=== PATIENT | male | born 1995 | race Caucasian/White ===

== ENCOUNTER 2021-03-21 04:30 | Inpatient (IN) ==
[2021-03-21] MEDS ORDERED: LACTATED RINGERS 1,000 ML IV STA (04:53)
[2021-03-21] MEDS ORDERED: DIPHTHERIA/TETANUS ADULT VACCINE 0.5 ML SYRINGE IM ONE (04:53)
[2021-03-21 05:12] LABS: Basophils # 0.1 10*3/uL (0.0-0.2); Basophils % 0.3 % (0.0-0.8); Hematocrit 43.5 VOL% (42.0-52.0); Hemoglobin 14.5 GM/DL (14.0-18.0); Immature Granulocytes % 0.6 %; Immature Granulocytes Absolute 0.13 #; Lymphocytes # 1.7 10*3/uL (1.4-4.0); Lymphocytes % 7.7 % (21.2-54.2); Mean Corpuscular HGB Conc 33.3 GM/DL (32-36); Monocytes % 5.6 % (1.7-12.7); Neutrophils % 85.8 % (38.7-73.9); Platelet Count 224 T/CUMM (130-400); Red Blood Count 4.89 MC/CUMM (3.8-5.5); Red Cell Distribution Width 12.6 % (9.3-17.3); White Blood Count 21.4 T/CUMM (4-12)
[2021-03-21 05:17] LABS: INR 1.6; PT Patient Result 17.7 SECS (10.5-12.0)
[2021-03-21 05:31] LABS: Alanine Aminotransferase 24 U/L (16-61); Albumin 4.2 G/DL (3.4-5.0); Alkaline Phosphatase 54 U/L (45-117); Amylase 60 U/L (25-115); Aspartate Amino Transferase 23 U/L (0-37); Blood Urea Nitrogen 12 MG/DL (7-18); Calcium 9.3 MG/DL (8.5-10.1); Carbon Dioxide 25 MMOL/L (21-32); Estimated Glom Filtration Rate 113 ML/MIN; Glucose 119 MG/DL (74-106); Osmolality,Calculated 281.3 MOS/KG (273-304); Potassium 3.2 MMOL/L (3.5-5.1); Sodium 141 MMOL/L (136-145); Total Protein 7.4 G/DL (6.4-8.2)
[2021-03-21 05:55] LABS: Band Neutrophils 1 % (0-10); Lymphocytes 14 % (20-55); Platelet Estimate Normal; Segmented Neutrophils 78 % (50-85); Total Cells Counted 100
[2021-03-21] MEDS ORDERED: PROMETHAZINE 25 MG/1 ML VIAL IM PRN (06:26)
[2021-03-21] MEDS ORDERED: MAGNESIUM HYDROXIDE SUSP 30 ML UDCUP PO PRN (06:26)
[2021-03-21] MEDS: PANTOPRAZOLE 40 MG TABLET PO SCH (08:57)
[2021-03-21] MEDS ORDERED: SUFentanil 50 MCG/ML AMP ONE (09:19)
[2021-03-21] MEDS ORDERED: MIDAZOLAM 2 MG/2 ML VIAL ONE (09:19)
[2021-03-21] MEDS ORDERED: DEXAMETHASONE 4 MG/1 ML VIAL ONE ×2 (09:21→10:50)
[2021-03-21] MEDS ORDERED: propofoL 200 MG/20 ML VIAL IV ONE (09:21)
[2021-03-21] MEDS ORDERED: KETOROLAC 30 MG/1 ML VIAL ONE (09:21)
[2021-03-21] MEDS ORDERED: ONDANSETRON 4 MG/2 ML VIAL ONE (09:21)
[2021-03-21] MEDS ORDERED: LIDOCAINE 2% 5 ML VIAL ONE (09:21)
[2021-03-21] MEDS ORDERED: SEVOFLURANE 1 UNIT/15 MINUTE INH ONE ×3 (09:21→11:26)
[2021-03-21] MEDS ORDERED: ACETAMINOPHEN INJ 1,000 MG/100 ML VIAL IV ONE (09:21)
[2021-03-21] MEDS ORDERED: ROCURONIUM 50 MG/5 ML VIAL IV ONE (09:21)
[2021-03-21] MEDS ORDERED: ceFAZolin 1,000 MG VIAL ONE (10:11)
[2021-03-21] MEDS ORDERED: LACTATED RINGERS 1,000 ML IV ONE ×2 (10:27→11:09)
[2021-03-21] MEDS ORDERED: PHENYLEPHRINE 1 MG/10 ML SYRINGE IV ONE (10:45)
[2021-03-21] MEDS ORDERED: SODIUM CHLORIDE 0.9% 100 ML IV ONE (10:45)
[2021-03-21] MEDS ORDERED: PHENYLEPHRINE 10 MG/1 ML VIAL IV ONE (10:46)
[2021-03-21] MEDS ORDERED: NEOSTIGMINE 10 MG/10 ML VIAL ONE (11:01)
[2021-03-21] MEDS ORDERED: GLYCOPYRROLATE 0.4 MG/2 ML VIAL ONE (11:01)
[2021-03-21] MEDS ORDERED: INFLUENZA VIRUS VACCINE 0.5 ML SYRINGE IM ONE (11:14)
[2021-03-21] MEDS ORDERED: ROPIVACAINE 0.5% 30 ML VIAL ONE (11:16)
[2021-03-21] MEDS: SODIUM CHLORIDE 0.9% 1,000 ML IV SCH ×2 (20:28→21:28)
[2021-03-22] MEDS: SODIUM CHLORIDE 0.9% 1,000 ML IV SCH (06:31)
[2021-03-22] MEDS: MORPHINE 2 MG/1 ML SYRINGE IV PRN ×2 (07:59→12:55)
[2021-03-22] MEDS: ONDANSETRON 4 MG/2 ML VIAL IV PRN ×2 (07:59→12:55)
[2021-03-22] MEDS: PANTOPRAZOLE 40 MG TABLET PO SCH (08:02)
[2021-03-22 13:02] VITALS: BP 130/66
== END 2021-03-22 15:07 | disposition home or self-care (01) | DRG 482 ==
LOC: N.ED 04:30 → N.EDINP 06:27 → N.3E 07:19
PROVIDERS: ADMIT Orthopaedic Surgery; ATTEND Orthopaedic Surgery